=== PATIENT | female | born 1980 | race Two or more races ===

== ENCOUNTER 2016-09-01 11:30 | Emergency (ER) | payer BC ==
[~2016-09-01] VITALS: Ht 157.5 cm; Wt 63.5 kg
[2016-09-01 12:20] VITALS: BP 149/93
[2016-09-01] MEDS ORDERED: IV NORMAL SALINE 1000ML BAG 1,000 ML IV ONE (12:45)
[2016-09-01] MEDS ORDERED: METOCLOPRAMIDE HCL 10 MG/2 ML VIAL. IV ONE (12:45)
[2016-09-01] MEDS ORDERED: DIPHENHYDRAMINE 50 MG/ML VIAL IVP ONE (12:45)
[2016-09-01] MEDS ORDERED: KETOROLAC TROMETHAMINE 30 MG/ML SYRINGE. IV ONE (12:45)
[2016-09-01 12:59] LABS: BASO # 0.1 x10^3/uL (0.0-0.2); BASO % 1 % (0-3); EOS % 1 % (0-3); HEMOGLOBIN 15.4 g/dL (12.0-15.5); LYMPH # 2.2 x10^3/uL (1.0-4.8); LYMPH % 26 % (24-48); MEAN CORPUSCULAR HEMOGLOBIN 27 pg (25-35); MEAN CORPUSCULAR HGB CONC 33 g/dL (31-37); MEAN CORPUSCULAR VOLUME 80 fL (79-100); MONO % 6 % (0-9); NEUT % 66 % (31-73); PLATELET COUNT 273 x10^3/uL (140-400); RED BLOOD COUNT 5.74 x10^6/uL (3.50-5.40); RED CELL DISTRIBUTION WIDTH 13.3 % (11.5-14.5); WHITE BLOOD COUNT 8.4 x10^3/uL (4.0-11.0)
[2016-09-01 13:14] LABS: CALCIUM 8.8 mg/dL (8.5-10.1); CREATININE 0.7 mg/dL (0.6-1.0); GFR 95.2; POTASSIUM 3.8 mmol/L (3.5-5.1)
[2016-09-01] MEDS ORDERED: BUTA1CAP29 PO (13:27)
[2016-09-01] MEDS ORDERED: METF500T4 PO (13:27)
--- NOTE | 2016-09-01 13:28 | PHYS DOC ---
Past Medical History Past Medical History: No Pertinent History Past Surgical History: No Surgical History Alcohol Use: None Drug Use: None Adult General Chief Complaint Chief Complaint: HEADACHE HPI HPI 36-year-old female presents with a two-week history of a headache. She states the pain has been progressive in nature since the onset. She states she is bothered by bright lights and has had some nausea and vomiting. She denies any fever or neck pain. She denies any lateralizing neurologic weakness. [] Review of Systems Review of Systems Constitutional: Denies fever or chills [] Eyes: Denies change in visual acuity, redness, or eye pain [] HENT: Denies nasal congestion or sore throat [] Respiratory: Denies cough or shortness of breath [] Cardiovascular: No additional information not addressed in HPI [] GI: Denies abdominal pain, nausea, vomiting, bloody stools or diarrhea [] : Denies dysuria or hematuria [] Musculoskeletal: Denies back pain or joint pain [] Integument: Denies rash or skin lesions [] Neurologic: Per history of present illness [] Endocrine: Denies polyuria or polydipsia [] Current Medications Current Medications Current Medications Medications (Trade) Dose Ordered Sig/Jakub Start Time Stop Time Status Last Admin Dose Admin Diphenhydramine HCl (Benadryl) 25 mg 1X ONCE 09/01/16 12:45 09/01/16 12:48 DC 09/01/16 12:53 25 MG Ketorolac Tromethamine (Toradol) 30 mg 1X ONCE 09/01/16 12:45 09/01/16 12:48 DC 09/01/16 12:54 30 MG Metoclopramide HCl (Reglan) 10 mg 1X ONCE 09/01/16 12:45 09/01/16 12:48 DC 09/01/16 12:54 10 MG Sodium Chloride (Iv Sodium Chloride 0.9% 1000ml Bag) 1,000 ml @ 1,000 mls/hr 1X ONCE 09/01/16 12:45 09/01/16 13:44 09/01/16 12:53 1,000 MLS/HR Allergies Allergies Allergies Coded Allergies Type Severity Reaction Last Updated Verified No Known Drug Allergies 09/01/16 No Physical Exam Physical Exam Constitutional: Well developed, well nourished, no acute distress, non-toxic appearance. [] HENT: Normocephalic, atraumatic, bilateral external ears normal, oropharynx moist, no oral exudates, nose normal. [] Eyes: PERRLA, EOMI, conjunctiva normal, no discharge. [] Neck: Normal range of motion, no tenderness, supple, no stridor. [] Cardiovascular:Heart rate regular rhythm, no murmur [] Lungs & Thorax: Bilateral breath sounds clear to auscultation [] Abdomen: Bowel sounds normal, soft, no tenderness, no masses, no pulsatile masses. [] Skin: Warm, dry, no erythema, no rash. [] Back: No tenderness, no CVA tenderness. [] Extremities: No tenderness, no cyanosis, no clubbing, ROM intact, no edema. [] Neurologic: Alert and oriented X 3, normal motor function, normal sensory function, no focal deficits noted. [] Psychologic: Affect normal, judgement normal, mood normal. [] Current Patient Data Vital Signs Vital Signs Date Time Temp Pulse Resp B/P Pulse Ox O2 Delivery O2 Flow Rate FiO2 09/01/16 12:20 97.6 77 16 149/93 98 Room Air 97.6 Lab Values Laboratory Tests Test 09/01/16 12:40 White Blood Count 8.4x10^3/uL (4.0-11.0) Red Blood Count 5.74x10^6/uL (3.50-5.40) H Hemoglobin 15.4g/dL (12.0-15.5) Hematocrit 46.0% (36.0-47.0) Mean Corpuscular Volume 80fL (79-100) Mean Corpuscular Hemoglobin 27pg (25-35) Mean Corpuscular Hemoglobin Concent 33g/dL (31-37) Red Cell Distribution Width 13.3% (11.5-14.5) Platelet Count 273x10^3/uL (140-400) Neutrophils (%) (Auto) 66% (31-73) Lymphocytes (%) (Auto) 26% (24-48) Monocytes (%) (Auto) 6% (0-9) Eosinophils (%) (Auto) 1% (0-3) Basophils (%) (Auto) 1% (0-3) Neutrophils # (Auto) 5.6x10^3uL (1.8-7.7) Lymphocytes # (Auto) 2.2x10^3/uL (1.0-4.8) Monocytes # (Auto) 0.5x10^3/uL (0.0-1.1) Eosinophils # (Auto) 0.1x10^3/uL (0.0-0.7) Basophils # (Auto) 0.1x10^3/uL (0.0-0.2) Sodium Level 135mmol/L (136-145) L Potassium Level 3.8mmol/L (3.5-5.1) Chloride Level 100mmol/L (98-107) Carbon Dioxide Level 26mmol/L (21-32) Anion Gap 9 (6-14) Blood Urea Nitrogen 8mg/dL (7-20) Creatinine 0.7mg/dL (0.6-1.0) Estimated GFR (Cockcroft-Gault) 95.2 Glucose Level 347mg/dL (70-99) H Calcium Level 8.8mg/dL (8.5-10.1) Laboratory Tests 09/01/16 12:40 Laboratory Tests 09/01/16 12:40 EKG EKG [] Radiology/Procedures Radiology/Procedures [] Course & Med Decision Making Course & Med Decision Making Pertinent Labs and Imaging studies reviewed. (See chart for details) [ED course: Evaluation reveals a 36-year-old female in no significant distress. She was given IV normal saline Reglan and Toradol and Benadryl which alleviated her symptoms. It was noted that her blood sugar was in the 390 range and she has not been diagnosed with diabetes in the past. I will start her on metformin as an outpatient. I will strongly encourage her to follow with family physician. ] Dragon Disclaimer Dragon Disclaimer This electronic medical record was generated, in whole or in part, using a voice recognition dictation system. Departure Departure Impression: Primary Impression: Headache Additional Impression: Hyperglycemia Disposition: 01 HOME, SELF-CARE Condition: STABLE Referrals: NO PCP (PCP) Patient Instructions: 1800 Calorie Diet for Diabetes Meal Planning, Diabetes Meal Planning Guide, Diabetes and Exercise-SportsMed, Diabetes, FAQs, Tension Headache, Type 2 Diabetes Mellitus, Adult Scripts Butalb/Acetaminophen/Caffeine (Fioricet 50-300-40 Mg Capsule)1 Each Capsule1 Each PO PRN Q4HRS PRN MIGRAINE HEADACHE #30 CAP Prov:STEPHANE ROBERTS DO 09/01/16 Metformin Hcl 500 Mg Tablet1 Tab PO BID diabetes #60 TAB Ref 3 Prov:STEPHANE ROBERTS DO 09/01/16 Problem Qualifiers Primary Impression: Headache Headache type: unspecified Headache chronicity pattern: unspecified pattern Intractability: not intractable Qualified Code: R51 - Headache STEPHANE ROBERTS DO Sep 01, 2016 13:28
--- NOTE | 2016-09-01 13:40 | RAD ---
CT of the head without contrast, 09/01/2016: History: Headache The ventricles are within normal limits in size. There is no shift of the midline structures. There is no evidence of acute intracranial hemorrhage or mass effect. IMPRESSION: The CT of the head without contrast reveals no significant abnormality. PQRS Compliance Statement: One or more of the following individualized dose reduction techniques were utilized for this examination: 1. Automated exposure control 2. Adjustment of the mA and/or kV according to patient size 3. Use of iterative reconstruction technique
== END 2016-09-01 14:28 | disposition home or self-care (01) ==
LOC: ER 11:30
DX: R51 Headache (principal); R73.9 Hyperglycemia, unspecified; R11.2 Nausea with vomiting, unspecified
CPT/HCPCS: 36415; 70450; 80048; 85027; 96361; 96374; 96375; 99285; J1200; J1885; J2765; J7030